=== PATIENT | male | born 1975 | race Caucasian/White ===

== ENCOUNTER 2017-11-28 08:07 | Day surgery (SDC) | payer OTHER ==
[~2017-11-28 08:07] MED LIST: ACETAMINOPHEN 325 MG TAB PO PRN; ASPIRIN EC 325 MG TAB PO ONE; DIAZEPAM 5 MG TAB PO ONE; FAMOTIDINE 20 MG TAB PO ONE; NITROGLYCERIN 0.4 MG BTL SL PRN; NS 1,000 ML IV ONE; NS 1,000 ML IV SCH; TEMAZEPAM 15 MG CAP PO PRN; diphenhydrAMINE 25 MG CAP PO ONE
[2017-11-28 08:43] LABS: PLATELET COUNT 169 10^3/uL (150-400)
[2017-11-28] MEDS ORDERED: ATROPINE SULFATE 1 MG/10 ML SYR ONE (08:50)
[2017-11-28 08:56] LABS: PROTIME(PATIENT) 13.4 SEC (12.0-15.0)
[2017-11-28] MEDS ORDERED: LIDOCAINE 1% 300 MG/30 ML SDV ONE (09:20)
[2017-11-28] MEDS ORDERED: fentaNYL 100 MCG/2 ML INJ ONE (09:21)
[2017-11-28] MEDS ORDERED: MIDAZOLAM 2 MG/2 ML VIAL ONE (09:21)
[2017-11-28] MEDS ORDERED: HEPARIN 10,000 UNIT/10 ML MDV (1,000 UNIT/ML) ONE (09:21)
[2017-11-28] MEDS ORDERED: IOPAMIDOL (ISOVUE-370) 150 ML BTL IV ONE (09:21)
[2017-11-28] MEDS ORDERED: VERAPAMIL 5 MG/2 ML VIAL ONE (09:21)
[2017-11-28] MEDS ORDERED: HYDROCODONE/APAP 5/325 TAB PO PRN (09:33)
[2017-11-28] MEDS ORDERED: ACETAMINOPHEN 500 MG TAB PO PRN (09:33)
[2017-11-28] MEDS ORDERED: ONDANSETRON 4 MG/2 ML VIAL IVP PRN (09:33)
[2017-11-28] MEDS ORDERED: fentaNYL 100 MCG/2 ML INJ IVP PRN (09:33)
[2017-11-28] MEDS ORDERED: MEPERIDINE 25 MG/0.5 ML AMP IVP PRN (09:33)
[2017-11-28] MEDS ORDERED: oxyCODONE IR 5 MG TAB PO PRN (09:33)
[2017-11-28] MEDS ORDERED: DEXAMETHASONE 4 MG/ML VIAL IVP PRN (09:33)
[2017-11-28] MEDS ORDERED: NALOXONE HCL 0.4 MG/ML INJ IVP PRN (09:33)
--- NOTE | 2017-11-28 09:34 | PDHPUP ---
History & Physical Update H&P update statement: This history and physical update is based on an assessment of the patient which was completed after admission or registration (within 24 hours), but prior to the surgery/procedure. H&P update: H&P reviewed & patient examined, no change in patient's condition since H&P completed
--- NOTE | 2017-11-28 09:35 | PDPROPOC ---
Sedation Plan of Care Sedation Plan of Care: vital signs stable, mental status noted, patient educated of risks, benefits, alternatives, patient can tolerate sedation ASA Classification: ASA 1 Planned drugs: fentanyl, midazolam Mallampati Score: Class 1 Mallampati Reference Image: Patient passed 3-3-2 rule?: Yes
[2017-11-28] MEDS ORDERED: PROPOFOL 200 MG/20 ML VIAL ONE (09:40)
--- NOTE | 2017-11-28 10:53 | PDDXCAT ---
Diagnostic Cath Note - . Date: 11/28/17 Package Designer: Cecily Indication: other (Preoperative corassessment prior to planned aortic valve surgery. ) - Procedure Access: right wrist Procedure: coronary angiography - Materials Left Heart Cath size: 5F Left Heart Cath materials: JL3.5, JR4.0 Right Heart Cath size: 5F - Findings-Left Heart Catheterization LM: Normal. LAD: Single principle diagonal branch. Angiographically normal. LCX: Single OM, [address]. Angiographically normal. RCA: Dominant. Normal. LVEF: LV gram not performed due to the presence of a mass on the valve and concern for provoking embolism. Complications: None. Estimated blood loss: <50ml Closure method: TR Band Assessment: 1. Angiographically normal coronary arteries. 2. 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 Plan: The patient will undergoe surgical resection of the mass located on the NCC of the aortic valve. Intervention: None.
--- NOTE | 2017-11-28 11:15 | ECHO ---
[email or web address] [address] [address] Main: [phone] Fax: Transesophageal Echocardiography Name: DONATO FLANNERY MR#: [id number] Study Date: 11/28/2017 Study Time: 09:39 AM Date of : 1975 Age: 42 year(s) Height: ( ) Weight: ( ) BSA: Gender: Male Examination: Echo Indication: history of aortic valve papillofibroma Image Quality: Adequate Contrast: Requested by: Tommy Dalton Heart Rate: Rhythm: BP: / Procedure Staff Circuit Breaker Supervisor: Micaela Rocha RDCS Reading Physician: Cristino Tony MD Requesting Provider: ANA LAURA Exam Details Conclusions: Normal size left ventricle. Normal global systolic LV function. The ejection fraction is visually estimated to be 60 %. No regional wall motion abnormality. There are no significant valvular abnormalities. There is a 1 x 1 cm, echobright mass located on the aortic aspect of the non-coronary cusp that is not mobile. This is suggestive of a healed vegetation versus papillary fibroelastoma. Measurements: Chambers Valvular Assessment AV/MV Valvular Assessment TV/PV Normal Normal Normal Name Value Range Name Value Range Name Value Range Visual EF: 60 % Additional Measurements: Findings: Left Ventricle: Normal size left ventricle. Normal global systolic LV function. The ejection fraction is visually estimated to be 60 %. No regional wall motion abnormality. Right Ventricle: Normal size right ventricle. Normal RV function. Left Atrium: Patient: DONATO FLANNERY Study Date: 11/28/2017 Page 1 of 2 09:39 AM An agitated saline study was performed and was positive for intracardiac shunting. This is consistent with a small PFO. Mitral Valve: The mitral valve is normal in appearance and function. Mild mitral valve regurgitation is present. No mitral stenosis is present. Aortic Valve: The aortic valve is tri-leaflet. There is no significant aortic valve regurgitation. No aortic valve stenosis is present. There is evidence of possible papillofibroma vs thickened nodule. Tricuspid Valve: The tricuspid valve is normal in appearance and function. Mild tricuspid regurgitation is present. Pulmonic Valve: The pulmonic valve is normal in appearance and function. There is no pulmonic regurgitation seen. Aorta: Normal size. l1n (No Signature Object) Patient: DONATO FLANNERY Study Date: 11/28/2017 Page 2 of 2 09:39 AM [id number]
--- NOTE | 2017-11-28 13:59 | GCON ---
DATE OF CONSULTATION: 11/28/2017 REFERRING PHYSICIAN: Dr. Tony Patient seen at the request of Dr. Tony with the patient's permission. IMPRESSION: 1. 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 2. Mild enlargement of ascending aorta. 3. History of asthma. RECOMMENDATIONS: We will obtain an MRI of his chest to see the size of his aorta and see if that nee ds to be addressed. If in fact it is 4 cm or greater, I would suggest he have aortic resection and r emoval of his fibroelastoma. The aortic valve was pristine and needs no attention other than removin g the mobile mass. He is considering his options at the present time and will call us if he decides to proceed with surgery. We have offered him surgery at a less than 1% chance of significant morbidi ty and mortality through a minimally invasive incision. 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 He had also had a 30 day event monitor. It is presumed to be PAT or SVT, but atrial fibrillation is trying to be ruled out. The monitor showed no significant arrhythmias. D uring his workup, the echo showed a mobile fibroelastoma on the aortic valve. He has no other signif icant medical history or family history that would contribute. No family history of aortic dissectio n or aneurysm. It appears to be a trileaflet valve. Of note, he does have a 4 cm aortic enlargement on the echo and no CT has been performed. An MRI is pending. He does have an allergy to stainless steel. He is asymptomatic, except for tachyarrhythmias. PAST MEDICAL HISTORY: Previous medical history is positive for hip fracture with repair and vasectom y. MEDICATIONS: Vitamins. ALLERGIES: . 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 He does not . 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 He drinks about 6 beers per week. PHYSICAL EXAMINATION: GENERAL: This is a well-developed middle-aged gentleman in no apparent distre ss. HEENT: Normocephalic. JONATHAN. EOMI. NECK: Without bruit, adenopathy, or thyromegaly. HEART: Rate regular without murmur, S3 or S4. LUNGS: Clear. ABDOMEN: Soft, nontender. Bowel sounds ar e active. RECTAL/GENITAL: Deferred. NEUROLOGIC: Grossly intact. No motor or sensory deficit. VA SCULAR: Pedal pulses 4+ and symmetrical. /[id number]/MODL
--- NOTE | 2017-11-30 09:03 | CPEKG ---
Test Reason : OPEN Blood Pressure : / mmHG Vent. Rate : 059 BPM Atrial Rate : 058 BPM P-R Int : 137 ms QRS Dur : 119 ms QT Int : 444 ms P-R-T Axes : 058 047 033 degrees QTc Int : 440 ms Sinus rhythm Probable left ventricular hypertrophy Confirmed by Maycol Marie ([id number]) on 11/30/2017 9:02:25 AM Referred By: Confirmed By:Maycol Marie
== END 2017-11-28 15:20 | disposition home or self-care (01) ==
LOC: FCATH 08:07
PROVIDERS: ATTEND Internal Medicine Cardiovascular Disease
PROC: 4A023N7 Measurement of Cardiac Sampling and Pressure, Left Heart, Percutaneous Approach (ICD-10-PCS; principal; 2017-11-28)
PROC: B2111ZZ Fluoroscopy of Multiple Coronary Arteries using Low Osmolar Contrast (ICD-10-PCS; principal; 2017-11-28)
PROC: B2151ZZ Fluoroscopy of Left Heart using Low Osmolar Contrast (ICD-10-PCS; principal; 2017-11-28)
DX: Z01.810 Encounter for preprocedural cardiovascular examination (principal); I35.9 Nonrheumatic aortic valve disorder, unspecified; J45.909 Unspecified asthma, uncomplicated; E78.5 Hyperlipidemia, unspecified; R00.0 Tachycardia, unspecified; R06.02 Shortness of breath
CPT/HCPCS: C1769; J0461; J1644; J2250; J2704; J3010; Q9967